=== PATIENT | male | born 1995 | race Hispanic/Latino ===

== ENCOUNTER 2018-03-03 18:11 | Emergency (ER) | payer OTHER ==
--- NOTE | 2018-03-03 19:00 | RAD REPORT ---
EXAM DESCRIPTION: RAD - Chest Pa And Lat (2 Views) - 03/03/2018 6:54 pm CLINICAL HISTORY: Cough COMPARISON: 10/31/2016 FINDINGS: Mild reticular opacities are suspected in the lingula likely indicating atypical infection . No consolidation typical of bacterial pneumonia is seen. The heart is normal in size. No displaced fractures.
[2018-03-03] MEDS ORDERED: IPRATROPIUM BROM 0.5MG/2.5ML ONE (19:01)
[2018-03-03] MEDS ORDERED: ALBUTEROL 2.5 MG/3 ML NEB SOL ONE (19:01)
[2018-03-03] MEDS ORDERED: AZITHROMYCIN 250 MG TAB ONE (20:04)
--- NOTE | 2018-03-03 20:27 | ER ---
Nurse's Notes [facility] Name: José Miguel Latham Age: 22 yrs Sex: Male : 1995 Arrival Date: 03/03/2018 Time: 18:12 Bed 23 Private MD: Diagnosis: Pneumonia, unspecified organism Presentation: 03/03 18:15 Presenting complaint:. Presenting complaint: Patient states: Cough for the last 3 days. la1 Transition of care: patient was not received from another setting of care. Resp Distress? No respiratory distress is noted at this time. Onset of symptoms was March 03, 2018. Initial Sepsis Screen: Does the patient meet any 2 criteria? No. Patient's initial sepsis screen is negative. Does the patient have a suspected source of infection? No. Patient's initial sepsis screen is negative. Care prior to arrival: None. 18:15 Method Of Arrival: Ambulatory la1 18:15 Acuity: MEIR 4 la1 Historical: - Allergies: 18:16 No Known Allergies; la1 - PMHx: 18:16 Anxiety; Bipolar disorder; Depression; la1 - Immunization history:: Adult Immunizations up to date. - Social history:: Smoking status: Patient uses tobacco products, smokes one pack cigarettes per day. Screenin:16 Abuse screen: Denies threats or abuse. Denies injuries from another. Nutritional kr2 screening: No deficits noted. Tuberculosis screening: No symptoms or risk factors identified. Fall Risk None identified. Assessment: 19:14 General: Appears in no apparent distress. comfortable, well groomed, well developed, kr2 well nourished, Behavior is calm, cooperative, appropriate for age. Pain: Denies pain. Neuro: Level of Consciousness is awake, alert, obeys commands, Oriented to person, place, time, situation, Appropriate for age. Cardiovascular: Capillary refill < 3 seconds in bilateral fingers Patient's skin is warm and dry. Respiratory: Reports cough that is productive, Airway is patent Respiratory effort is even, unlabored, Respiratory pattern is regular, symmetrical, Breath sounds are clear bilaterally. GI: Abdomen is flat, non-distended. EENT: Nares are clear bilaterally Oral mucosa is moist. Reports nasal congestion. Derm: Skin is intact, is healthy with good turgor, Skin is pink, warm \T\ dry. Musculoskeletal: Circulation, motion, and sensation intact. 20:33 Reassessment: Patient appears in no apparent distress at this time. Patient and/or kr2 family updated on plan of care and expected duration. Pain level reassessed. Patient is alert, oriented x 3, equal unlabored respirations, skin warm/dry/pink. Patient denies pain at this time. Vital Signs: 18:16 Pulse 84; Resp 19; Temp 98.6; Pulse Ox 96% on R/A; Weight 102.06 kg; Height 5 ft. 10 la1 in. (177.80 cm); 18:16 BP 145 / 70; la1 20:33 BP 119 / 80; Pulse 88; Resp 16; Pulse Ox 100% on R/A; kr2 18:16 Body Mass Index 32.28 (102.06 kg, 177.80 cm) la1 ED Course: 18:12 Patient arrived in ED. as 18:15 Triage completed. la1 18:16 Arm band placed on left wrist. la1 18:17 Carmen Longo FNP-C is [facility]. kb 18:17 Bill Zheng MD is Attending Physician. kb 18:47 Yolanda Cabello, RN is Primary Nurse. kr2 18:52 Chest Pa And Lat (2 Views) XRAY In Process Unspecified. EDMS 19:16 Patient has correct armband on for positive identification. Bed in low position. Call kr2 light in reach. Side rails up X 1. Pulse ox on. NIBP on. Door closed. Head of bed elevated. Administered Medications: 19:03 Drug: DuoNeb (3:1) (2.5 mg - 0.5 mg) 3 ml Route: Nebulizer; kr2 19:33 Follow up: Response: No adverse reaction kr2 20:05 Drug: Zithromax 500 mg Route: PO; kr2 20:33 Follow up: Response: Medication administered at discharge. kr2 Outcome: 20:26 Discharge ordered by . kb 20:34 Patient left the ED. kr2 Signatures: Dispatcher [employer] EDMS Carmen Longo FNP-C FNP-Ckb Martinez, Amelia as Attema, Lee, RN RN la1 Yolanda Cabello, ADAM RN kr2
--- NOTE | 2018-03-03 20:28 | EDPHYS ---
Physician Documentation [facility] Name: José Miguel Latham Age: 22 yrs Sex: Male : 1995 Arrival Date: 03/03/2018 Time: 18:12 Bed 23 Private MD: ED Physician Bill Zheng HPI: 03/03 20:47 This 22 yrs old Male presents to ER via Ambulatory with complaints of Cough, kb Congestion. 20:47 The patient or guardian reports cough, that is intermittent, described as moderate. kb Onset: The symptoms/episode began/occurred yesterday. Severity of symptoms: At their worst the symptoms were mild, moderate, in the emergency department the symptoms are unchanged. Modifying factors: The symptoms are alleviated by nothing, the symptoms are aggravated by nothing. Associated signs and symptoms: The patient has no apparent associated signs or symptoms. The patient has not experienced similar symptoms in the past. The patient has not recently seen a physician. Historical: - Allergies: 18:16 No Known Allergies; la1 - PMHx: 18:16 Anxiety; Bipolar disorder; Depression; la1 - Immunization history:: Adult Immunizations up to date. - Social history:: Smoking status: Patient uses tobacco products, smokes one pack cigarettes per day. ROS: 20:46 Constitutional: Negative for fever, chills, and weight loss, ENT: Negative for injury, kb pain, and discharge, Neck: Negative for injury, pain, and swelling, Cardiovascular: Negative for chest pain, palpitations, and edema, Abdomen/GI: Negative for abdominal pain, nausea, vomiting, diarrhea, and constipation, Back: Negative for injury and pain, : Negative for injury, bleeding, discharge, and swelling, MS/Extremity: Negative for injury and deformity, Skin: Negative for injury, rash, and discoloration, Neuro: Negative for headache, weakness, numbness, tingling, and seizure. 20:46 Respiratory: Positive for cough, Negative for dyspnea on exertion, hemoptysis, orthopnea, pleurisy, shortness of breath, sputum production, wheezing. Exam: 20:46 Constitutional: This is a well developed, well nourished patient who is awake, alert, kb and in no acute distress. Head/Face: Normocephalic, atraumatic. ENT: Nares patent. No nasal discharge, no septal abnormalities noted. Tympanic membranes are normal and external auditory canals are clear. Oropharynx with no redness, swelling, or masses, exudates, or evidence of obstruction, uvula midline. Mucous membranes moist. Neck: Trachea midline, no thyromegaly or masses palpated, and no cervical lymphadenopathy. Supple, full range of motion without nuchal rigidity, or vertebral point tenderness. No Meningismus. Chest/axilla: Normal chest wall appearance and motion. Nontender with no deformity. No lesions are appreciated. Cardiovascular: Regular rate and rhythm with a normal S1 and S2. No gallops, murmurs, or rubs. Normal PMI, no JVD. No pulse deficits. Abdomen/GI: Soft, non-tender, with normal bowel sounds. No distension or tympany. No guarding or rebound. No evidence of tenderness throughout. Back: No spinal tenderness. No costovertebral tenderness. Full range of motion. Skin: Warm, dry with normal turgor. Normal color with no rashes, no lesions, and no evidence of cellulitis. MS/ Extremity: Pulses equal, no cyanosis. Neurovascular intact. Full, normal range of motion. Neuro: Awake and alert, GCS 15, oriented to person, place, time, and situation. Cranial nerves II-XII grossly intact. Motor strength 5/5 in all extremities. Sensory grossly intact. Cerebellar exam normal. Normal gait. 20:46 Respiratory: the patient does not display signs of respiratory distress, Respirations: normal, Breath sounds: wheezing: expiratory that is moderate, is heard diffusely. Vital Signs: 18:16 Pulse 84; Resp 19; Temp 98.6; Pulse Ox 96% on R/A; Weight 102.06 kg; Height 5 ft. 10 la1 in. (177.80 cm); 18:16 BP 145 / 70; la1 20:33 BP 119 / 80; Pulse 88; Resp 16; Pulse Ox 100% on R/A; kr2 18:16 Body Mass Index 32.28 (102.06 kg, 177.80 cm) la1 MDM: 18:17 Patient medically screened. kb 20:44 Data reviewed: vital signs, nurses notes. Data interpreted: Pulse oximetry: on room air kb is 100 %. Interpretation: normal. Counseling: I had a detailed discussion with the patient and/or guardian regarding: the historical points, exam findings, and any diagnostic results supporting the discharge/admit diagnosis, radiology results, the need for outpatient follow up, a family practitioner, to return to the emergency department if symptoms worsen or persist or if there are any questions or concerns that arise at home. 20:47 ED course: minimal wheezing after neb treatments. kb 03/03 18:17 Order name: Chest Pa And Lat (2 Views) XRAY; Complete Time: 19:19 kb Administered Medications: 19:03 Drug: DuoNeb (3:1) (2.5 mg - 0.5 mg) 3 ml Route: Nebulizer; kr2 19:33 Follow up: Response: No adverse reaction kr2 20:05 Drug: Zithromax 500 mg Route: PO; kr2 20:33 Follow up: Response: Medication administered at discharge. kr2 Disposition: 03/04 09:14 Co-signature as Attending Physician, Bill Zheng MD I agree with the assessment and tyrese plan of care. Disposition: 03/03/18 20:26 Discharged to Home. Impression: Pneumonia, unspecified organism. - Condition is Stable. - Discharge Instructions: Pneumonia, Adult, [id number]. - Prescriptions for Albuterol Sulfate 90 mcg/actuation - inhale 1-2 puff by INHALATION route every 4-6 hours; 1 Inhaler. Zithromax 500 mg Oral Tablet - take 1 tablet by ORAL route once daily for 5 days; 5 tablet. - Medication Reconciliation Form, Thank You Letter, Antibiotic Education, Prescription Opioid Use form. - Follow up: Emergency Department; When: As needed; Reason: Worsening of condition. Follow up: Private Physician; When: 2 - 3 days; Reason: Recheck today's complaints, Continuance of care, Re-evaluation by your physician. Signatures: Dispatcher [employer] EDWV Carmen Longo, JOHN-Ginger LOPEZ-Bill Ledesma MD MD cha Attema, Lee, RN RN [email or web address] Yolanda Cabello RN RN kr2
== END 2018-03-03 20:34 | disposition home or self-care (01) ==
LOC: ER 18:11
DX: J18.9 Pneumonia, unspecified organism (principal)
CPT/HCPCS: 71046; 94640; 99284